=== PATIENT | male | born 1975 | race Caucasian/White ===

== ENCOUNTER 2024-05-28 08:31 | Inpatient (IN) | payer OTHER ==
[2024-05-28] VITALS (8 sets, daily range): BP systolic 107–138; BP diastolic 57–63; PULSE 80–87; RESP 12–17; TEMP 36.7–37.2; O2SAT 97–100
[~2024-05-28] VITALS: Ht 185.4 cm; Wt 111.1 kg
[2024-05-28] MEDS ORDERED: METF-1149 MT (08:51)
[2024-05-28] MEDS: PIPERACILLIN/TAZO 3.375G/50ML 50 ML IV ONE (09:03)
[2024-05-28] MEDS: SODIUM CHLORIDE 0.9% (SEPSIS BOLUS) IV ONE (09:03)
[2024-05-28 09:13] LABS: CHLORIDE 105 mEq/L (98-107); POTASSIUM 3.6 mEq/L (3.5-5.1); SODIUM 137 mEq/L (136-145)
[2024-05-28 09:14] LABS: CALCIUM 8.8 mg/dL (8.7-10.4); CARBON DIOXIDE 22 mEq/L (21-32)
[2024-05-28 09:15] LABS: HEMATOCRIT. 36.8 % (42.0-52.0); HEMOGLOBIN. 12.4 g/dL (14.0-18.0); MEAN CORPUSCULAR HEMOGLOBIN 28.8 pg (28.0-32.0); MEAN CORPUSCULAR HGB CONC 33.6 g/dL (31.0-37.0); MEAN CORPUSCULAR VOLUME 85.7 fL (80.0-94.0); RED BLOOD CELL COUNT 4.29 mill/uL (4.7-6.1); RED CELL DISTRIBUTION WIDTH 16.4 % (11.6-14.6); WHITE BLOOD COUNT 5.1 x1000/uL (4.5-11.0)
[2024-05-28 09:19] LABS: GLUCOSE 246 mg/dL (70-105); TROPONIN I HIGH SENSITIVITY 21 ng/L (3.0-53); UREA NITROGEN BLOOD 20 mg/dL (9-23)
[2024-05-28 09:21] LABS: ALANINE AMINOTRANSFERASE 38 IU/L (10-49); ASPARTATE AMINOTRANSFERASE 56 IU/L (<34); BILIRUBIN DIRECT 1.7 mg/dL (<=3.0); BILIRUBIN TOTAL 3.5 mg/dL (0.1-1.0); DIFFERENTIAL COMMENT 1; PROTEIN TOTAL 7.6 g/dL (6.0-8.3)
[2024-05-28 09:22] LABS: LACTIC ACID 4.3 mmol/L (0.4-2.0)
[2024-05-28 09:33] LABS: INR 1.7
[2024-05-28 09:43] LABS: ANISOCYTOSIS 1+; PLATELET ESTIMATE MARKEDLY DECREASED
[2024-05-28 09:49] LABS: MEAN PLATELET VOLUME 8.9 fl (7.4-10.4); PLATELET 37 x1000/uL (130-400)
[2024-05-28] MEDS: VANCOMYCIN 1G PREMIX 200 ML IV ONE (10:28)
[2024-05-28 10:44] LABS: BG BASE EXCESS -2.4 mmol/L (-2.0-3.0); BG CARBOXYHEMOGLOBIN 1.2 % (0.5-1.5); BG DEOXYHEMOGLOBIN 1.6 % (0.0-5.0); BG FRACTION INSPIRED OXYGEN 21; BG HCO3 ACT 19.5 mmol/L (21.0-28.0); BG METHEMOGLOBIN 0.3 % (0.5-1.5); BG OXYGEN SATURATION 98.4 % (94.0-98.0); BG OXYHEMOGLOBIN 96.9 % (94.0-98.0); BG PCO2 25.7 mmHg (35.0-48.0); BG PH 7.497 (7.350-7.450); BG PO2 100.9 mmHg (83.0-108.0); BG SAMPLE SITE RIGHT RADIAL; BG TOTAL HEMOGLOBIN 12.2 g/dL (13.5-17.5); BG VENT MODE ROOM AIR
[2024-05-28 10:46] LABS: BETA HYDROXYBUTYRATE 0.1 mMol/L (0.0-0.3)
[2024-05-28] MEDS ORDERED: IPRATROPIUM/ALBUTEROL 0.5-3(2.5)MG/3ML NEB HHN PRN (14:00)
[2024-05-28] MEDS ORDERED: CLONIDINE 0.1MG TABLET PO PRN (14:00)
[2024-05-28] MEDS ORDERED: ONDANSETRON HCL 4MG/2ML INJ IV PRN (14:00)
[2024-05-28] MEDS ORDERED: GUAIFENESIN 200MG/10ML SUGAR FREE UDC PO PRN (14:00)
[2024-05-28] MEDS ORDERED: MAGNESIUM/ALUMINUM HYDROXIDE/SIMETHICONE 30ML UDC PO PRN (14:00)
[2024-05-28] MEDS ORDERED: ACETAMINOPHEN 325MG TABLET PO PRN (14:00)
[2024-05-28] MEDS ORDERED: PIPERACILLIN/TAZO 3.375G/50ML 50 ML IV SCH (14:30)
[2024-05-28] MEDS ORDERED: PIPERACILLIN/TAZOBACTAM 3.375 G in DEXTROSE 5% WATER 50 ML IV SCH (14:45)
[2024-05-28] MEDS ORDERED: DEXTROSE 50% WATER 50ML SYRINGE IV PRN (15:00)
[2024-05-28] MEDS: BLOOD SUGAR DIAGNOSTIC STRIP TEST SCH (17:00)
[2024-05-28] MEDS: PANTOPRAZOLE SODIUM 40 MG/VIAL IV SCH (18:44)
[2024-05-28] MEDS: INSULIN LISPRO 100 UNITS/ML SUBCUT SCH (18:44)
[2024-05-28] MEDS: SODIUM CHLORIDE 0.9% 1,000 ML IV SCH (18:51)
[2024-05-28 22:03] LABS: AMMONIA 56 uMol/L (<32)
[2024-05-28] MEDS: PIPERACILLIN/TAZO 3.375G/50ML 50 ML IV SCH (22:52)
[2024-05-28] MEDS: ACETAMINOPHEN 325MG TABLET PO PRN (22:53)
[2024-05-29] VITALS (11 sets, daily range): BP systolic 99–135; BP diastolic 41–79; PULSE 77–97; RESP 11–22; TEMP 36.6–37.4; O2SAT 95–100
[2024-05-29] MEDS ORDERED: FURO20TA4 PO (02:24)
[2024-05-29] MEDS ORDERED: LACT-390 PO (02:24)
[2024-05-29] MEDS ORDERED: POTA20LI50 PO (02:24)
[2024-05-29] MEDS ORDERED: OMEP20CA14 PO (02:24)
[2024-05-29] MEDS ORDERED: GLIP10TA17 PO (02:24)
[2024-05-29] MEDS ORDERED: SPIR50TA5 PO (02:24)
[2024-05-29] MEDS ORDERED: CARV6.2548 PO (02:24)
[2024-05-29] MEDS ORDERED: METF-907 PO (02:24)
[2024-05-29 05:45] LABS: CLARITY URINE CLEAR (CLEAR); COLOR URINE DARK YELLOW (YELLOW); GLUCOSE URINE NEGATIVE (NEGATIVE); KETONES URINE NEGATIVE (NEGATIVE); LEUKOCYTE ESTERASE URINE TRACE (NEGATIVE); NITRITE URINE NEGATIVE (NEGATIVE); OCCULT BLOOD URINE NEGATIVE (NEGATIVE); PH URINE 5.5 (4.5-8.0); PROTEIN URINE NEGATIVE (NEGATIVE); SPECIFIC GRAVITY URINE 1.022 (1.005-1.030)
[2024-05-29 05:55] LABS: *AMPHETAMINES SCREEN URINE NEGATIVE (NEGATIVE); *BARBITURATES SCREEN URINE NEGATIVE (NEGATIVE); *BENZODIAZEPINES SCREEN URINE NEGATIVE (NEGATIVE); *COCAINE SCREEN URINE PRESUMPTIVE POSITIVE (NEGATIVE); CANNABINOID URINE SCREEN NEGATIVE (NEGATIVE); ECSTASY MDMA SCREEN URINE NEGATIVE (NEGATIVE); METHADONE URINE SCREEN NEGATIVE (NEGATIVE); OPIATES URINE SCREEN NEGATIVE (NEGATIVE); PHENCYCLIDINE URINE SCREEN NEGATIVE (NEGATIVE)
[2024-05-29 05:59] LABS: SQUAMOUS EPITHELIAL CELL URINE 1+ /lpf (RARE/1+)
[2024-05-29 06:02] LABS: RBC URINE 0-2 /hpf (0-2); WBC URINE 0-2 /hpf (0-2)
[2024-05-29 06:03] LABS: BACTERIA URINE NONE SEEN
[2024-05-29 07:46] LABS: BASOPHILS % 0.4 % (0.0-2.0); EOSINOPHILS % 1.7 % (0.0-5.0); HEMATOCRIT. 30.3 % (42.0-52.0); HEMOGLOBIN. 10.4 g/dL (14.0-18.0); LYMPHOCYTES % 12.5 % (20.0-50.0); MEAN CORPUSCULAR HEMOGLOBIN 29.2 pg (28.0-32.0); MEAN CORPUSCULAR HGB CONC 34.2 g/dL (31.0-37.0); MEAN CORPUSCULAR VOLUME 85.2 fL (80.0-94.0); MEAN PLATELET VOLUME 9.2 fl (7.4-10.4); MONOCYTES % 12.2 % (2.0-8.0); NEUTROPHILS % 73.2 % (40.0-76.0); RED BLOOD CELL COUNT 3.55 mill/uL (4.7-6.1); RED CELL DISTRIBUTION WIDTH 16.2 % (11.6-14.6); WHITE BLOOD COUNT 2.8 x1000/uL (4.5-11.0)
[2024-05-29 08:08] LABS: CARBON DIOXIDE 26 mEq/L (21-32); CHLORIDE 107 mEq/L (98-107); POTASSIUM 3.3 mEq/L (3.5-5.1); SODIUM 140 mEq/L (136-145)
[2024-05-29 08:09] LABS: CALCIUM 8.3 mg/dL (8.7-10.4)
[2024-05-29 08:14] LABS: CREATININE 0.6 mg/dL (0.6-1.3); GLUCOSE 113 mg/dL (70-105); TRIGLYCERIDE 70 mg/dL (0-150); UREA NITROGEN BLOOD 13 mg/dL (9-23)
[2024-05-29 08:15] LABS: LDL CHOLESTEROL 24 mg/dL (5-100); THYROID STIMULATING HORMONE 0.84 uIU/mL (0.55-4.78)
[2024-05-29 08:16] LABS: CHOLESTEROL 71 mg/dL (<200); HDL CHOLESTEROL < 20 mg/dL (>55)
[2024-05-29] MEDS: THIAMINE HCL 100MG TABLET PO SCH (08:24)
[2024-05-29 08:46] LABS: DIFFERENTIAL COMMENT 1
[2024-05-29] MEDS: POTASSIUM CHLORIDE 20MEQ/PACKET PO NR (12:24)
[2024-05-29] MEDS: MAGNESIUM 2 G PREMIX 50 ML IV NR (13:27)
[2024-05-29] MEDS: METRONIDAZOLE 500MG TABLET PO SCH (14:53)
[2024-05-29 16:07] LABS: PLATELET 33 x1000/uL (130-400)
[2024-05-29] MEDS: VANCOMYCIN 1.5GM/250ML IV SCH (16:23)
== END 2024-05-29 22:57 | disposition short-term general hospital (02) | DRG 871 ==
LOC: ER 08:31 → EDBD 10:00 → 5EST 10:00 → EDBEDREQTM 10:08 → EDBEDREQ 10:08 → EDBEDREQSVC 10:08
PROVIDERS: ADMIT Internal Medicine; ATTEND Internal Medicine
DX: A41.9 Sepsis, unspecified organism (principal); G92.8 Other toxic encephalopathy; R65.21 Severe sepsis with septic shock; K83.1 Obstruction of bile duct; R17 Unspecified jaundice; K57.92 Diverticulitis of intestine, part unspecified, without perforation or abscess without bleeding; E78.5 Hyperlipidemia, unspecified; D64.9 Anemia, unspecified; F14.129 Cocaine abuse with intoxication, unspecified; D69.6 Thrombocytopenia, unspecified; E86.0 Dehydration; E11.9 Type 2 diabetes mellitus without complications; Z79.4 Long term (current) use of insulin; Z79.84 Long term (current) use of oral hypoglycemic drugs; Z79.899 Other long term (current) drug therapy
CPT/HCPCS: 36415; 36600; 71045; 74176; 80048; 80061; 80076; 80305; 81003; 82010; 82140; 82375; 82805; 82962; 83036; 83605; 83735; 84145; 84439; 84443; 84484; 85025; 87015; 87045; 87077; 87177; 87186; 87209; 87427; 87449; 87493; 89055; 93005; 93970; 99291; J1815; J2470; J2543; J3370; J3475; J7030; J7060